=== PATIENT | female | born 1985 | race American Indian/Alaskan Native ===

== ENCOUNTER 2016-04-15 09:46 | Emergency (ER) | payer SELFPAY ==
--- NOTE | 2016-04-15 12:12 | Emergency Department Report ---
ED Back Pain/Injury HPI - General Chief Complaint: Back Pain/Injury Stated Complaint: BACK PAIN Time Seen by Provider: 04/15/16 12:10 Source: patient, translator/interpreter Limitations: No Limitations - History of Present Illness Initial Comments: 30-year-old female past medical history asthma presents with complaint of episode of tight back pain with some radiation to chest brief episode this morning. Patient denies any diaphoresis shortness of breath palpitations abdominal pain nausea or vomiting. Patient states it feels like a tight sensation behind her right shoulder region and nonradiating at this time. Very mild only 2 out of 10. Denies smoking denies any family history of MO in her mother or father. Awake alert and oriented 3 denies any paresthesias and no weakness in upper or lower extremities. Denies any pleuritic chest pain not on any control. DVT or PE MD Complaint: back pain Onset/Timin -: minutes(s) Similar Symptoms Previously: No Place: home Severity: moderate Severity scale (0 -10): 5 Improves With: none Worsens With: none Associated Symptoms: chest pain - Related Data Home Medications Medication Instructions Recorded Confirmed Last Taken ALBUTEROL Inhaler [ProAir HFA 2 puff IH QID PRN 12/25/14 12/25/14 Unknown Inhaler] Previous Rx's Medication Instructions Recorded Last Taken Type Cyclobenzaprine [Flexeril] 10 mg PO TID PRN #15 tablet 04/15/16 Unknown Rx Naproxen [Naprosyn TAB] 500 mg PO BID PRN #14 tablet 04/15/16 Unknown Rx Allergies Allergy/AdvReac Type Severity Reaction Status Date / Time No Known Allergies Allergy Unverified 12/25/14 07:22 ED Review of Systems ROS: Stated complaint: BACK PAIN Other details as noted in HPI ED Past Medical Hx - Past Medical History Previous Medical History?: Yes Hx Heart Attack/AMI: Yes Hx Psychiatric Treatment: Yes (anxiety) Hx Asthma: Yes Additional medical history: allergies. GALLSTONES - Surgical History Past Surgical History?: Yes Additional Surgical History: LEEP. HERNIA REPAIR. . LASER SURGERY TO CERVIX - Social History Smoking Status: Never Smoker Substance Use Type: Prescribed - Medications Home Medications: Home Medications Medication Instructions Recorded Confirmed Last Taken Type ALBUTEROL Inhaler [ProAir HFA 2 puff IH QID PRN 12/25/14 12/25/14 Unknown History Inhaler] Cyclobenzaprine [Flexeril] 10 mg PO TID PRN #15 tablet 04/15/16 Unknown Rx Naproxen [Naprosyn TAB] 500 mg PO BID PRN #14 tablet 04/15/16 Unknown Rx ED Physical Exam - General Limitations: No Limitations General appearance: alert, in no apparent distress - Head Head exam: Present: atraumatic, normocephalic - Eye Eye exam: Present: normal appearance, PERRL, EOMI - ENT ENT exam: Present: mucous membranes moist - Neck Neck exam: Present: normal inspection - Respiratory Respiratory exam: Present: normal lung sounds bilaterally. Absent: respiratory distress - Cardiovascular Cardiovascular Exam: Present: regular rate, normal rhythm. Absent: systolic murmur, diastolic murmur, rubs, gallop - GI/Abdominal GI/Abdominal exam: Present: soft, normal bowel sounds - Extremities Exam Extremities exam: Present: normal inspection - Back Exam Back exam: Present: normal inspection, paraspinal tenderness (pain reproducible on the right trapezius region, no rash on skin) - Neurological Exam Neurological exam: Present: alert, oriented X3, CN II-XII intact, normal gait - Psychiatric Psychiatric exam: Present: normal affect, normal mood - Skin Skin exam: Present: warm, dry, intact, normal color. Absent: rash ED Course Vital Signs 04/15/16 04/15/16 10:08 14:18 Temperature 98.5 F Pulse Rate 81 86 Respiratory 20 20 Rate Blood Pressure 121/87 Blood Pressure 114/61 [Right] O2 Sat by Pulse 99 99 Oximetry ED Medical Decision Making - Lab Data Result diagrams: 04/15/16 12:37 04/15/16 12:37 - Medical Decision Making A/P: Musculoskeletal back pain, back spasm 1-given patient's history and clinical symptoms this is likely muscular pain in the upper back. The patient complained of one episode of mild chest pain performed EKG chest x-ray troponin and CK-MB, all within normal limits. 2-HEART score 0 points Low Score (0-3 points Risk of MACE of 0.9-1.7%. 3-PERC Rule 0 criteria No need for further workup, as <2% chance of PE. 4-patient does not have primary care doctor will refer her to primary care 5- Motrin and Flexeril when necessary for back spasm/muscle pain Critical care attestation.: If time is entered above; I have spent that time in minutes in the direct care of this critically ill patient, excluding procedure time. ED Disposition Clinical Impression: Muscle spasm of back Disposition: DISCHARGED TO HOME OR SELFCARE Is pt being admited?: No Does the pt Need Aspirin: No Condition: Stable Instructions: Musculoskeletal Pain (ED), Muscle Spasm (ED) Prescriptions: Cyclobenzaprine [Flexeril] 10 mg PO TID PRN #15 tablet PRN Reason: Muscle Spasm Naproxen [Naprosyn TAB] 500 mg PO BID PRN #14 tablet PRN Reason: Pain Referrals: PRIMARY CAREMD [Primary Care Provider] - 3-5 Days [facility] [Outside] - 3-5 Days DHAVAL COHEN MD [Staff Physician] - 3-5 Days Forms: Accompanied Note, Work/School Release Form(ED) Time of Disposition: 14:00
[2016-04-15 12:59] LABS: Basophils % (Auto) 0.6 % (0.0-1.8); Creatine Kinase MB 1.1 ng/mL (0.0-4.0); Eosinophils % (Auto) 5.8 % (0.0-4.3); Hematocrit 40.9 % (30.3-42.9); Hemoglobin 13.3 gm/dl (10.1-14.3); Mean Corpuscular HGB Conc 33 % (30-34); Mean Corpuscular Hemoglobin 29 pg (28-32); Mean Corpuscular Volume 88 fl (79-97); Platelet Count 266 K/mm3 (140-440); Red Blood Count 4.65 M/mm3 (3.65-5.03); Red Cell Distribution Width 13.9 % (13.2-15.2); White Blood Count 5.1 K/mm3 (4.5-11.0)
[2016-04-15 13:00] LABS: Anion Gap 15 mmol/L; Blood Urea Nitrogen 12 mg/dL (7-17); Calcium 8.7 mg/dL (8.4-10.2); Carbon Dioxide 24 mmol/L (22-30); Creatine Kinase 154 units/L (30-135); Glucose 95 mg/dL (65-100); Potassium 4.4 mmol/L (3.6-5.0); Sodium 138 mmol/L (137-145)
--- NOTE | 2016-04-15 13:37 | XRay Report ---
ROUTINE CHEST, TWO VIEWS: HISTORY: chest pain. The trachea, heart, mediastinal contour, lung lozano and bony thorax are unremarkable. IMPRESSION: Unremarkable chest x-ray.
[2016-04-15 14:19] VITALS: BP 114/61
== END 2016-04-15 14:18 | disposition home or self-care (01) ==
LOC: ED 09:46
DX: M62.830 Muscle spasm of back (principal); I25.2 Old myocardial infarction; F41.9 Anxiety disorder, unspecified; J45.909 Unspecified asthma, uncomplicated
CPT/HCPCS: 36415; 71020; 80048; 81025; 82550; 82553; 84484; 85025; 93005; 93010

== ENCOUNTER 2016-12-16 20:33 | Emergency (ER) | payer OTHER ==
[2016-12-16] MEDS ORDERED: DUONEB *Not for PRN Use IH ONE (20:52)
[2016-12-16 21:59] LABS: Basophils % (Auto) 0.4 % (0.0-1.8); Eosinophils % (Auto) 2.5 % (0.0-4.3); Hematocrit 40.2 % (30.3-42.9); Hemoglobin 13.5 gm/dl (10.1-14.3); Mean Corpuscular HGB Conc 34 % (30-34); Mean Corpuscular Hemoglobin 29 pg (28-32); Mean Corpuscular Volume 88 fl (79-97); Platelet Count 274 K/mm3 (140-440); Red Blood Count 4.58 M/mm3 (3.65-5.03); Red Cell Distribution Width 14.6 % (13.2-15.2); White Blood Count 8.2 K/mm3 (4.5-11.0)
[2016-12-16 22:08] LABS: INR 0.91 (0.87-1.13)
[2016-12-16 22:09] LABS: Partial Thromboplastin Time 25.5 Sec. (24.2-36.6)
--- NOTE | 2016-12-16 22:17 | XRay Report ---
FINAL REPORT PROCEDURE: XR CHEST ROUTINE 2V TECHNIQUE: Two views of the chest are obtained HISTORY: Shortness of breath COMPARISON: No prior studies are available for comparison. FINDINGS: The heart is normal in size. There is no focal infiltrate, pneumothorax or pleural effusion. There is dextroscoliosis centered in the lower thoracic spine. IMPRESSION: Scoliosis is seen without evidence of other abnormality.
[2016-12-16 22:18] LABS: Anion Gap 19 mmol/L; BUN/Creatinine Ratio 28; Blood Urea Nitrogen 14 mg/dL (7-17); Calcium 9.4 mg/dL (8.4-10.2); Carbon Dioxide 23 mmol/L (22-30); Chloride 100.1 mmol/L (98-107); Glucose 90 mg/dL (65-100); Potassium 3.8 mmol/L (3.6-5.0); Sodium 138 mmol/L (137-145)
[2016-12-16 22:22] LABS: Albumin 4.6 g/dL (3.9-5); Albumin/Globulin Ratio 1.5 %; Bilirubin,Total 0.3 mg/dL (0.1-1.2); Total Protein 7.6 g/dL (6.3-8.2)
[2016-12-16 22:25] LABS: Bilirubin,Direct 0.2 mg/dL (0-0.2); Bilirubin,Indirect 0.1 mg/dL
[2016-12-17 01:50] VITALS: BP 129/75
== END 2016-12-16 22:00 | disposition left against medical advice (07) ==
LOC: ED 20:33
DX: R07.9 Chest pain, unspecified (principal); Z53.21 Procedure and treatment not carried out due to patient leaving prior to being seen by health care provider
CPT/HCPCS: 36415; 71020; 80048; 80074; 84484; 84703; 85025; 85610; 85730; 93005; 93010

== ENCOUNTER 2017-05-31 18:45 | Emergency (ER) | payer SELFPAY ==
[2017-05-31 18:53] VITALS: BP 144/75
[2017-05-31] MEDS ORDERED: PROVENTIL IH ONE ×2 (19:49→19:52)
[2017-05-31] MEDS ORDERED: DUONEB *Not for PRN Use IH ONE (19:58)
[2017-05-31] MEDS ORDERED: DELTASONE PO ONE (19:58)
--- NOTE | 2017-05-31 20:01 | Emergency Department Report ---
Chief Complaint: Adult Asthma Stated Complaint: ASTHMA Time Seen by Provider: 05/31/17 19:56 - HPI History of Present Illness: The patient is 32-year-old female with a history of asthma, who presents for evaluation of dyspnea. The patient reports onset of dyspnea and wheezing 2 hours prior to arrival, constant since onset, moderate to severe, exacerbated with exertion or ambulation. The patient denies fever, trauma to the chest, chest pain, syncope, hemoptysis, unilateral leg swelling, oral contraceptive use , recent immobilization, history of DVT or PE, hx cancer. - Exam Vital Signs: Vital Signs 05/31/17 18:49 Temperature 98.8 F Pulse Rate 73 Respiratory 18 Rate Blood Pressure 144/75 O2 Sat by Pulse 100 Oximetry MSE screening note: Focused history and physical exam performed. Due to findings the following was ordered: ED Disposition for MSE Condition: Undetermined
--- NOTE | 2017-05-31 21:03 | Emergency Department Report ---
ED Asthma HPI - General Chief Complaint: Adult Asthma Stated Complaint: ASTHMA Time Seen by Provider: 05/31/17 19:56 Source: patient Mode of arrival: Ambulatory Limitations: No Limitations - History of Present Illness Initial Comments: This is a 32-year-old female nontoxic, well nourished in appearance, no acute signs of distress presents to the ED with c/o of wheezing and shortness of breathe. Patient stated she was driving and started to wheeze and came into the ED. Patient denies any cough, chest pain, fever, chills, nausea, vomiting, headache, stiff neck, syncopal, hemoptysis, unilateral leg pain, back pain. Patient denies any past medical history of DVT or PE or cancer. Patient denies any recent immobilization, recent hospital stays, or long car rides. She denies any drug allergies. MD Complaint: "asthma attack", wheezing -: This afternoon Asthma History: childhood onset Severity: mild Context: none known Associated Symptoms: none - Related Data Current Asthma Therapy: none Home Medications Medication Instructions Recorded Confirmed Last Taken ALBUTEROL Inhaler [ProAir HFA 2 puff IH QID PRN 12/25/14 12/25/14 Unknown Inhaler] Previous Rx's Medication Instructions Recorded Last Taken Type Cyclobenzaprine [Flexeril] 10 mg PO TID PRN #15 tablet 04/15/16 Unknown Rx Naproxen [Naprosyn TAB] 500 mg PO BID PRN #14 tablet 04/15/16 Unknown Rx ALBUTEROL Inhaler [ProAir HFA 2 puff IH QID PRN #1 inhalation 05/31/17 Unknown Rx Inhaler] ALBUTEROL NEB's [Proventil 0.083% 2.5 mg IH TID PRN #1 box 05/31/17 Unknown Rx NEBS] Prednisone [predniSONE 10 mg 10 mg PO .TAPER #1 tab.ds.pk 05/31/17 Unknown Rx (6-Day Pack, 21 Tabs)] Allergies Allergy/AdvReac Type Severity Reaction Status Date / Time No Known Allergies Allergy Unverified 12/25/14 07:22 ED Review of Systems ROS: Stated complaint: ASTHMA Other details as noted in HPI Constitutional: denies: chills, fever Eyes: denies: eye pain, eye discharge, vision change ENT: denies: ear pain, throat pain Respiratory: shortness of breath, wheezing. denies: cough Cardiovascular: denies: chest pain, palpitations Endocrine: no symptoms reported Gastrointestinal: denies: abdominal pain, nausea, diarrhea Genitourinary: denies: urgency, dysuria, discharge Musculoskeletal: denies: back pain, joint swelling, arthralgia Skin: denies: rash, lesions Neurological: denies: headache, weakness, paresthesias Psychiatric: denies: anxiety, depression Hematological/Lymphatic: denies: easy bleeding, easy bruising ED Past Medical Hx - Past Medical History Previous Medical History?: Yes Hx Heart Attack/AMI: Yes Hx Psychiatric Treatment: Yes (anxiety) Hx Asthma: Yes Additional medical history: allergies. GALLSTONES / PE - Surgical History Past Surgical History?: Yes Additional Surgical History: LEEP / TUBAL LIGATION. HERNIA REPAIR. C- SECTION. LASER SURGERY TO CERVIX - Social History Smoking Status: Never Smoker Substance Use Type: None - Medications Home Medications: Home Medications Medication Instructions Recorded Confirmed Last Taken Type ALBUTEROL Inhaler [ProAir HFA 2 puff IH QID PRN 15 12/25/14 Unknown History Inhaler] Cyclobenzaprine [Flexeril] 10 mg PO TID PRN #15 tablet 04/15/16 Unknown Rx Naproxen [Naprosyn TAB] 500 mg PO BID PRN #14 tablet 04/15/16 Unknown Rx ALBUTEROL Inhaler [ProAir HFA 2 puff IH QID PRN #1 inhalation 05/31/17 Unknown Rx Inhaler] ALBUTEROL NEB's [Proventil 0.083% 2.5 mg IH TID PRN #1 box 05/31/17 Unknown Rx NEBS] Prednisone [predniSONE 10 mg 10 mg PO .TAPER #1 tab.ds.pk 05/31/17 Unknown Rx (6-Day Pack, 21 Tabs)] ED Physical Exam - General Limitations: No Limitations General appearance: alert, in no apparent distress - Head Head exam: Present: atraumatic, normocephalic - Eye Eye exam: Present: normal appearance Pupils: Present: normal accommodation - ENT ENT exam: Present: normal exam, mucous membranes moist - Neck Neck exam: Present: normal inspection, full ROM - Respiratory Respiratory exam: Present: normal lung sounds bilaterally, wheezes (bilateral upper and lower lobes). Absent: respiratory distress, rales, rhonchi, stridor, chest wall tenderness, accessory muscle use, decreased breath sounds, prolonged expiratory - Cardiovascular Cardiovascular Exam: Present: regular rate, normal rhythm, normal heart sounds. Absent: bradycardia, tachycardia, irregular rhythm, systolic murmur, diastolic murmur, rubs, gallop - GI/Abdominal GI/Abdominal exam: Present: soft, normal bowel sounds - Rectal Rectal exam: Present: deferred - Extremities Exam Extremities exam: Present: normal inspection, full ROM, normal capillary refill. Absent: calf tenderness - Back Exam Back exam: Present: normal inspection, full ROM - Neurological Exam Neurological exam: Present: alert, oriented X3, normal gait - Psychiatric Psychiatric exam: Present: normal affect, normal mood - Skin Skin exam: Present: warm, dry, intact, normal color. Absent: rash ED Course Vital Signs 05/31/17 18:49 Temperature 98.8 F Pulse Rate 73 Respiratory 18 Rate Blood Pressure 144/75 O2 Sat by Pulse 100 Oximetry - Reevaluation(s) Reevaluation #1: 05/31/17 21:05 Patient is speaking in full sentences with no signs of distress noted. - Consultations Consultation #1: 05/31/17 21:05 Patient has been consulted with Dr. Dsouza about patient history, physical exam, and labs and examined and screened patient and agrees to ED plan of care and discharge plan of care. ED Medical Decision Making - Medical Decision Making This is a 32-year-old female that presents with asthma exacerbation. Patient was examined by me and Dr. Dsouza. Chest x-ray has been obtained as indicated by the radiologist within normal limits. Patient is notified of the x -ray results with questions noted by the patient. Patient received DuoNeb and prednisone in the ED which patient stated her symptoms has improved and resolved. Patient is discharged with prednisone, albuterol, and nebulizer solution. Patient was referred and instructed to Follow-up with a primary care doctor in 3-5 days or if symptoms worsen and continue return to emergency room as soon as possible. At time of discharge, the patient does not seem toxic or ill in appearance. No acute signs of distress noted. Patient agrees to discharge treatment plan of care. No further questions noted by the patient. Critical care attestation.: If time is entered above; I have spent that time in minutes in the direct care of this critically ill patient, excluding procedure time. ED Disposition Clinical Impression: Asthma exacerbation Qualifiers: Asthma severity: mild Asthma persistence: intermittent Qualified Code(s): J45.21 - Mild intermittent asthma with (acute) exacerbation Disposition: TO HOME OR SELFCARE Is pt being admited?: No Does the pt Need Aspirin: No Condition: Stable Instructions: Albuterol (By breathing), Prednisone (By mouth), Asthma (ED) Additional Instructions: Follow-up with a primary care doctor in 3-5 days or if symptoms worsen and continue return to emergency room as soon as possible. Prescriptions: ALBUTEROL Inhaler [ProAir HFA Inhaler] 2 puff IH QID PRN #1 inhalation PRN Reason: Shortness Of Breath ALBUTEROL NEB's [Proventil 0.083% NEBS] 2.5 mg IH TID PRN #1 box PRN Reason: Wheezing Prednisone [predniSONE 10 mg (6-Day Pack, 21 Tabs)] 10 mg PO .TAPER #1 tab.ds.pk Referrals: DHAVAL MICHAEL MD [Staff Physician] - 3-5 Days PRIMARY CAREMD [Referring] - 3-5 Days [facility] [Outside] - 3-5 Days [facility] [Outside] - 3-5 Days Forms: Work/School Release Form(ED)
--- NOTE | 2017-05-31 21:14 | XRay Report ---
FINAL REPORT PROCEDURE: XR CHEST ROUTINE 2V TECHNIQUE: PA and lateral chest radiographs were obtained. CPT 17343 HISTORY: wheezing COMPARISON: 12/16/2016 FINDINGS: Heart: Normal. Mediastinum/Vessels: Normal. Lungs/Pleural space: Normal. Bony thorax: No acute osseous abnormality. Other: IMPRESSION: Normal examination.
== END 2017-05-31 22:05 | disposition home or self-care (01) ==
LOC: ED 18:45
DX: J45.21 Mild intermittent asthma with (acute) exacerbation (principal); I25.2 Old myocardial infarction; F41.9 Anxiety disorder, unspecified; Z98.51 Tubal ligation status
CPT/HCPCS: 71046; 94640; 99283; J7512